=== PATIENT | female | born 1955 | race Hispanic/Latino ===

== ENCOUNTER → 2019-02-21 | Outpatient (CLI) | payer BC | END | disposition home or self-care (01) | LOC: RAH 09:49 | PROVIDERS: ATTEND Internal Medicine Gastroenterology | DX: R10.9 Unspecified abdominal pain (principal); R14.0 Abdominal distension (gaseous); R11.10 Vomiting, unspecified | CPT/HCPCS: 78264; A9541 ==

== ENCOUNTER 2021-04-22 07:38 | Day surgery (SDC) | payer BC ==
[2021-04-22] MEDS ORDERED: SODIUM CHLORIDE 0.9% 1000ML 1,000 ML IV SCH (08:00)
[2021-04-22] MEDS ORDERED: SODIUM CHLORIDE 0.9% 1000ML 1,000 ML IV ONE (08:02)
[2021-04-22 08:27] LABS: CREATININE 1.7 mg/dL (0.5-1.5)
[2021-04-22 08:43] VITALS: BP 164/41
[2021-04-22] MEDS ORDERED: IOHEXOL-350 75 ML VIAL IV ONE (12:55)
[2021-04-22] MEDS ORDERED: IOHEXOL-350 50ML VIAL IV ONE (12:56)
[2021-04-22 13:47] VITALS: BP 153/69
== END 2021-04-22 13:59 | disposition home or self-care (01) ==
LOC: RAH 07:38 → EDSTATUS 08:00 → RAH 13:59
PROVIDERS: ATTEND Internal Medicine Cardiovascular Disease
DX: I51.7 Cardiomegaly (principal); R60.0 Localized edema; I70.292 Other atherosclerosis of native arteries of extremities, left leg
CPT/HCPCS: 36415; 75635; 82565; 84520; 96360; 96361; A4215; A4216; A4221; A4222; A4223 ×3; A4606; A4663; J7030; Q9967 ×2

== ENCOUNTER 2025-09-30 06:51 | Day surgery (SDC) | payer MEDICARE ==
[2025-09-30] VITALS (10 sets, daily range): BP systolic 103–199; BP diastolic 35–71; PULSE 64–74; RESP 14–17; TEMP 97–97.6
[~2025-09-30] VITALS: Ht 152.4 cm; Wt 53.5 kg
[~2025-09-30 06:51] MED LIST: 0.9%NACL 1000ML 0 ML IV ONE
[2025-09-30] MEDS: 0.9% NACL 500ML IV.SOLN 500 ML IV ONE (07:30)
[2025-09-30] MEDS ORDERED: CARV25TA PO (10:23)
[2025-09-30] MEDS ORDERED: TELM1TAB48 PO (10:23)
[2025-09-30] MEDS ORDERED: BUME2TAB5 PO (10:24)
[2025-09-30] MEDS ORDERED: VADA150T PO (10:24)
[2025-09-30] MEDS ORDERED: SULF500T75 PO (10:24)
[2025-09-30] MEDS ORDERED: ROSU20TA98 PO (10:24)
[2025-09-30] MEDS ORDERED: ESCI5TAB16 PO (10:25)
[2025-09-30] MEDS ORDERED: FEBU40TA6 PO (10:25)
[2025-09-30] MEDS ORDERED: LINA145C PO (10:25)
[2025-09-30] MEDS ORDERED: PANT20TA18 PO (10:25)
[2025-09-30] MEDS ORDERED: ROPI2TAB29 PO (10:26)
[2025-09-30] MEDS ORDERED: TRAM100C2 PO (10:26)
[2025-09-30] MEDS ORDERED: INSU3INS3 SQ (10:26)
[2025-09-30] MEDS ORDERED: AURYXIA PO (10:27)
== END 2025-09-30 10:51 | disposition home or self-care (01) ==
LOC: DAH 06:51 → ENDO 06:51
PROVIDERS: ATTEND Internal Medicine
DX: K59.04 Chronic idiopathic constipation (principal); K57.30 Diverticulosis of large intestine without perforation or abscess without bleeding; K63.89 Other specified diseases of intestine; K21.9 Gastro-esophageal reflux disease without esophagitis; K51.50 Left sided colitis without complications; I12.0 Hypertensive chronic kidney disease with stage 5 chronic kidney disease or end stage renal disease; E11.22 Type 2 diabetes mellitus with diabetic chronic kidney disease; N18.6 End stage renal disease; M19.90 Unspecified osteoarthritis, unspecified site; J45.909 Unspecified asthma, uncomplicated; M79.7 Fibromyalgia; M32.9 Systemic lupus erythematosus, unspecified; E66.9 Obesity, unspecified; Z68.43 Body mass index [BMI] 50.0-59.9, adult; Z99.2 Dependence on renal dialysis; Z86.0100 Personal history of colon polyps, unspecified; Z86.2 Personal history of diseases of the blood and blood-forming organs and certain disorders involving the immune mechanism; Z90.49 Acquired absence of other specified parts of digestive tract; Z90.710 Acquired absence of both cervix and uterus; Z82.49 Family history of ischemic heart disease and other diseases of the circulatory system; Z88.6 Allergy status to analgesic agent; Z79.899 Other long term (current) drug therapy; Z98.890 Other specified postprocedural states
CPT/HCPCS: 82948 ×2; 45380; J7040; J2704; A4620; A4215; A4657; A7002; J7030; J3490